=== PATIENT | female | born 1960 | race Caucasian/White ===

== ENCOUNTER 2017-08-05 18:27 | Emergency (ER) | payer OTHER ==
[~2017-08-05] VITALS: Ht 157.5 cm; Wt 86.2 kg
[2017-08-05 18:35] VITALS: BP 165/92
--- NOTE | 2017-08-05 18:40 | NUR ---
PT BIBA TO BED 2.
--- NOTE | 2017-08-05 19:42 | NUR ---
C/O NOSEBLEED X1 HOUR, BLEEDING CONTROLLED AT THIS TIME, PT GIVEN NOSECLAMP AND INSTRUCTED TO LEAVE IN PLACE. PT IS AA&OX4, SITTING IN BED, AT BEDSIDE. HX HTN NKA
[2017-08-05] MEDS ORDERED: BACITRACIN OINT 500 UNITS/GM PKT TP STA (20:06)
[2017-08-05] MEDS ORDERED: cloNIDine 0.1 MG TAB PO ONE (20:10)
--- NOTE | 2017-08-05 20:30 | NUR ---
BLEEDING HAS STOPPED, PT IS SITTING IN BED, WILL CONTINUE TO MONITOR.
[2017-08-05 21:21] VITALS: BP 143/86
== END 2017-08-05 21:20 | disposition home or self-care (01) ==
LOC: MED 18:27
DX: R04.0 Epistaxis (principal); I10 Essential (primary) hypertension
CPT/HCPCS: 99283